=== PATIENT | female | born 1955 | race Caucasian/White ===

== ENCOUNTER 2016-12-30 18:30 | Inpatient (IN) | payer BC, OTHER ==
[~2016-12-30] VITALS: Ht 165.1 cm; Wt 71.2 kg
[2016-12-30 18:32] VITALS: BP 135/71
[2016-12-30 19:04] LABS: HEMATOCRIT 35.6 % (37.0-47.0); HEMOGLOBIN 12.3 gm/dL (12.0-15.0); MCH 33.6 pg (26.0-34.0); MCHC 34.4 g/dL (28.0-37.0); MCV 97.9 fL (80.0-100.0); PLATELET COUNT 124 thou/uL (150-400); RBC 3.64 mil/uL (4.20-5.00); RDW 15.5 % (10.5-14.5); WBC 6.5 thou/uL (4.0-11.0)
[2016-12-30 19:06] LABS: MANUAL DIFF YES
[2016-12-30 19:08] LABS: CALCIUM 8.1 mg/dL (8.5-10.1); CREATININE 1.2 mg/dL (0.6-1.0); POTASSIUM 4.7 mmol/L (3.5-5.1)
[2016-12-30 19:15] LABS: ALBUMIN 1.8 g/dL (3.4-5.0); DIRECT BILIRUBIN 2.4 mg/dL (<0.1-0.3); TOTAL PROTEIN 6.6 g/dL (6.4-8.2)
[2016-12-30 19:23] LABS: APTT 38.7 Seconds (24.5-32.8); INR 1.6; PROTIME 15.5 Seconds (9.3-11.4)
[2016-12-30 19:27] LABS: ABSOLUTE NEUTROPHILS 4.6 thou/uL (1.4-8.2); TOTAL CELL COUNT 100
[2016-12-30 20:32] LABS: URINE BILIRUBIN 2+ (Negative); URINE BLOOD NEGATIVE (Negative); URINE COLOR BROWN; URINE GLUCOSE-RANDOM* NEGATIVE (Negative); URINE KETONES TRACE (Negative); URINE LEUKOCYTES-REFLEX TRACE (Negative); URINE PROTEIN (DIPSTICK) 1+ (Negative); URINE SPECIFIC GRAVITY >= 1.030 (1.003-1.035)
[2016-12-30 20:37] LABS: ICTOTEST (BILI CONFIRMATORY) Positive (Negative)
[2016-12-30 20:39] LABS: CASTS None Seen /LPF (None Seen); CRYSTALS None Seen /LPF (None Seen); SQUAMOUS 4-10 Moderate /LPF (0-3)
[2016-12-30 20:40] LABS: AMP/METHAMP Negative (Negative); BARBITURATES Negative (Negative); BENZODIAZEPINES Negative (Negative); COCAINE Negative (Negative); METHADONE Negative (Negative); OPIATES POSITIVE (Negative); PCP Negative (Negative); THC Negative (Negative); URINE WBC-REFLEX 6-15 Few /HPF (0-5)
[2016-12-30 20:41] LABS: URINE RBC None Seen /HPF (0-2)
[2016-12-31 00:52] VITALS: BP 133/65
[2016-12-31 04:57] VITALS: BP 117/45
[2016-12-31 07:30] LABS: HEMATOCRIT 32.2 % (37.0-47.0); HEMOGLOBIN 11.2 gm/dL (12.0-15.0); MCHC 34.7 g/dL (28.0-37.0); MCV 97.9 fL (80.0-100.0); RBC 3.29 mil/uL (4.20-5.00); RDW 15.5 % (10.5-14.5); WBC 4.2 thou/uL (4.0-11.0)
[2016-12-31 07:43] LABS: ALBUMIN 1.5 g/dL (3.4-5.0); CALCIUM 7.8 mg/dL (8.5-10.1); CREATININE 1.2 mg/dL (0.6-1.0); POTASSIUM 4.3 mmol/L (3.5-5.1); TOTAL BILIRUBIN 3.2 mg/dL (<0.1-1.0); TOTAL PROTEIN 5.8 g/dL (6.4-8.2)
[2016-12-31 08:23] VITALS: BP 99/50
[2016-12-31 17:25] VITALS: BP 112/43
[2016-12-31 20:00] VITALS: BP 103/61
[2017-01-01 04:00] VITALS: BP 105/55
[2017-01-01] MEDS ORDERED: POTASSIUM20 PO (05:36)
[2017-01-01] MEDS ORDERED: ALDACTONE100 MG PO (05:37)
[2017-01-01] MEDS ORDERED: PROTONIX40 M1 PO (05:39)
[2017-01-01] MEDS ORDERED: COLACE100 MG (05:39)
[2017-01-01] MEDS ORDERED: VITAMIN D1000 UNI1 PO (05:40)
[2017-01-01] MEDS ORDERED: FOLIC ACID1 MG PO (05:40)
[2017-01-01] MEDS ORDERED: XIFAXAN550 M1 PO (05:48)
[2017-01-01 07:16] LABS: CALCIUM 7.6 mg/dL (8.5-10.1); CREATININE 1.1 mg/dL (0.6-1.0); POTASSIUM 4.2 mmol/L (3.5-5.1)
[2017-01-01 07:28] LABS: HEMATOCRIT 29.3 % (37.0-47.0); HEMOGLOBIN 10.1 gm/dL (12.0-15.0); MCH 34.2 pg (26.0-34.0); MCHC 34.4 g/dL (28.0-37.0); MCV 99.4 fL (80.0-100.0); RBC 2.95 mil/uL (4.20-5.00); WBC 3.7 thou/uL (4.0-11.0)
[2017-01-01 08:28] VITALS: BP 123/64
[2017-01-01] MEDS ORDERED: PROPRANOLOL 1010 MG PO (09:23)
[2017-01-01 09:34] VITALS: BP 123/64
== END 2017-01-01 10:49 | disposition home or self-care (01) | DRG 436 ==
LOC: ER 18:30 → EROBS 22:38 → 4E 22:38
PROVIDERS: Emergency Medicine; Hospitalist; Nurse Practitioner Family
DX: C22.0 Liver cell carcinoma (principal); N39.0 Urinary tract infection, site not specified; E72.20 Disorder of urea cycle metabolism, unspecified; K72.90 Hepatic failure, unspecified without coma; K74.60 Unspecified cirrhosis of liver; E83.51 Hypocalcemia; Z79.899 Other long term (current) drug therapy
CPT/HCPCS: 10084